=== PATIENT | male | born 1945 | race African-American/Black ===

== ENCOUNTER 2016-12-17 15:44 | Emergency (ER) | payer MEDICARE, MEDICAID ==
[~2016-12-17] VITALS: Ht 182.9 cm; Wt 90.0 kg
[~2016-12-17 15:44] MED LIST: ACET-2178 PO; ASPI-1159 PO; CITA10TA16 PO; CLON0.2T PO; DOCU-138 PO; HYDR-523 PO; LORA0.5T2 PO; METO25TA6 PO; MOM PO; MULT-348 PO; OLAN5TAB3 PO; PANT40TA4 PO; SERT50TA12 PO; TEMA15CA PO; TRAM50TA3 PO
[2016-12-17 16:25] LABS: BASOPHILS % 0.5 % (0.0-2.0); EOSINOPHILS % 7.3 % (0.0-5.0); HEMATOCRIT. 39.2 % (42.0-52.0); LYMPHOCYTES % 21.8 % (20.0-50.0); MEAN CORPUSCULAR HEMOGLOBIN 30.7 pg (28.0-32.0); MEAN CORPUSCULAR VOLUME 92.5 fL (80.0-94.0); MONOCYTES % 7.4 % (2.0-8.0); PLATELET 275 x1000/uL (130-400); RED BLOOD CELL COUNT 4.24 mill/uL (4.7-6.1)
[2016-12-17 16:31] LABS: INR 1.1; PROTHROMBIN TIME 11.3 sec
[2016-12-17 16:33] LABS: CARBON DIOXIDE 29 mEq/L (21-32); CHLORIDE 106 mEq/L (98-107)
[2016-12-17 19:47] VITALS: BP 164/72
[2017-02-03] MEDS ORDERED: LOV80 SUBCUT (08:34)
[2017-02-03] MEDS ORDERED: DILT30TA38 PO (08:34)
[2017-02-03] MEDS ORDERED: DIGO-26 PO (08:34)
[2017-02-03] MEDS ORDERED: WARFARIN PER PHARMACY XX (08:34)
[2017-02-03] MEDS ORDERED: WARF2TAB57 PO (08:35)
== END 2016-12-17 20:22 | disposition home or self-care (01) ==
LOC: ER 15:56 → CANBEDREQ 21:58
DX: L89.321 Pressure ulcer of left buttock, stage 1 (principal); L97.121 Non-pressure chronic ulcer of left thigh limited to breakdown of skin; F41.9 Anxiety disorder, unspecified; D64.9 Anemia, unspecified; I10 Essential (primary) hypertension; F03.90 Unspecified dementia, unspecified severity, without behavioral disturbance, psychotic disturbance, mood disturbance, and anxiety; R56.9 Unspecified convulsions; Z86.73 Personal history of transient ischemic attack (TIA), and cerebral infarction without residual deficits; Z79.82 Long term (current) use of aspirin; Z79.899 Other long term (current) drug therapy
CPT/HCPCS: 36415; 80048; 85025; 85610; 99284

== ENCOUNTER 2016-12-18 18:54 | Inpatient (IN) | payer MEDICARE, MEDICAID ==
[~2016-12-18] VITALS: Ht 182.9 cm; Wt 86.2 kg
[~2016-12-18 18:54] MED LIST changes: +MAGN400O4 PO; -MOM PO
[2016-12-18 19:31] LABS: BASOPHILS % 0.4 % (0.0-2.0); EOSINOPHILS % 7.2 % (0.0-5.0); HEMATOCRIT. 36.9 % (42.0-52.0); HEMOGLOBIN. 12.5 g/dL (14.0-18.0); LYMPHOCYTES % 22.4 % (20.0-50.0); MEAN CORPUSCULAR HEMOGLOBIN 31.3 pg (28.0-32.0); MEAN CORPUSCULAR VOLUME 92.7 fL (80.0-94.0); MEAN PLATELET VOLUME 8.1 fl (7.4-10.4); MONOCYTES % 8.9 % (2.0-8.0); NEUTROPHILS % 61.1 % (40.0-76.0); PLATELET 249 x1000/uL (130-400); RED BLOOD CELL COUNT 3.98 mill/uL (4.7-6.1); RED CELL DISTRIBUTION WIDTH 14.5 % (11.6-14.6)
[2016-12-18 19:37] LABS: INR 1.1; PROTHROMBIN TIME 11.2 sec
[2016-12-18 19:40] LABS: CARBON DIOXIDE 27 mEq/L (21-32); CHLORIDE 106 mEq/L (98-107)
[2016-12-18 23:46] LABS: CLARITY URINE CLEAR (CLEAR); COLOR URINE DARK YELLOW (YELLOW); GLUCOSE URINE NEGATIVE (NEGATIVE); KETONES URINE TRACE (NEGATIVE); LEUKOCYTE ESTERASE URINE TRACE (NEGATIVE); NITRITE URINE NEGATIVE (NEGATIVE); OCCULT BLOOD URINE NEGATIVE (NEGATIVE); PROTEIN URINE TRACE (NEGATIVE); SPECIFIC GRAVITY URINE 1.033 (1.005-1.030)
[2016-12-19] MEDS ORDERED: CEFTRIAXONE 1 G PREMIX 50 ML IV ONE
[2016-12-19] MEDS: IPRATROPIUM/ALBUTEROL 0.5-3(2.5)MG/3ML NEB INH SCH ×2 (01:35→21:09)
[2016-12-19 09:55] VITALS: BP 129/93
[2016-12-19 10:30] VITALS: BP 129/93
[2016-12-19] MEDS ORDERED: NA PHOS,M-B/NA PHOS,DI-BA ENEMA 118ML PR PRN (11:00)
[2016-12-19] MEDS ORDERED: DOCUSATE SODIUM 100MG CAPSULE PO PRN (11:00)
[2016-12-19] MEDS ORDERED: MAGNESIUM/ALUMINUM HYDROXIDE/SIMETHICONE 30ML UDC PO PRN (11:00)
[2016-12-19] MEDS ORDERED: DIPHENHYDRAMINE 50MG/ML VIAL IV PRN (11:00)
[2016-12-19] MEDS ORDERED: ACETAMINOPHEN 650MG SUPP PR PRN (11:00)
[2016-12-19] MEDS ORDERED: HYDROCODONE/ACETAMINOPHEN 5/325MG TABLET PO PRN (11:00)
[2016-12-19] MEDS ORDERED: ONDANSETRON HCL 4MG/2ML VIAL IV PRN (11:00)
[2016-12-19] MEDS ORDERED: ACETAMINOPHEN 650MG/20.3ML UDC GT PRN (11:00)
[2016-12-19] MEDS ORDERED: GUAIFENESIN 200MG/10ML SUGAR FREE UDC PO PRN (11:00)
[2016-12-19] MEDS ORDERED: IPRATROPIUM/ALBUTEROL 0.5-3(2.5)MG/3ML NEB INH PRN (11:00)
[2016-12-19 12:00] VITALS: BP 121/86
[2016-12-19 12:49] LABS: CARBON DIOXIDE 28 mEq/L (21-32); CHLORIDE 106 mEq/L (98-107)
[2016-12-19] MEDS: SODIUM CHLORIDE 0.9% INJ 3ML FLUSH IVF SCH ×2 (13:08→22:35)
[2016-12-19] MEDS: ENOXAPARIN 40MG/0.4ML SYR SUBCUT SCH (13:09)
[2016-12-19 16:00] VITALS: BP 133/94
[2016-12-19] MEDS: CLONIDINE 0.1MG TABLET PO PRN (17:42)
[2016-12-19 17:46] LABS: CREATINE KINASE 67 IU/L (39-308); TROPONIN I < 0.02 ng/mL (0.00-0.04)
[2016-12-19 18:15] LABS: BASOPHILS % 0.3 % (0.0-2.0); EOSINOPHILS % 7.1 % (0.0-5.0); HEMATOCRIT. 35.2 % (42.0-52.0); HEMOGLOBIN. 12.1 g/dL (14.0-18.0); LYMPHOCYTES % 23.1 % (20.0-50.0); MEAN CORPUSCULAR HEMOGLOBIN 31.6 pg (28.0-32.0); MEAN CORPUSCULAR VOLUME 92.4 fL (80.0-94.0); MEAN PLATELET VOLUME 8.3 fl (7.4-10.4); MONOCYTES % 9.4 % (2.0-8.0); NEUTROPHILS % 60.1 % (40.0-76.0); PLATELET 236 x1000/uL (130-400); RED BLOOD CELL COUNT 3.81 mill/uL (4.7-6.1)
[2016-12-19 18:24] LABS: CARBON DIOXIDE 26 mEq/L (21-32); CHLORIDE 107 mEq/L (98-107)
[2016-12-19 20:00] VITALS: BP 110/73
[2016-12-19 20:05] LABS: CLARITY URINE CLOUDY (CLEAR); COLOR URINE YELLOW (YELLOW); GLUCOSE URINE NEGATIVE (NEGATIVE); KETONES URINE NEGATIVE (NEGATIVE); LEUKOCYTE ESTERASE URINE TRACE (NEGATIVE); NITRITE URINE NEGATIVE (NEGATIVE); OCCULT BLOOD URINE 3+ (NEGATIVE); PH URINE 7.5 (4.5-8.0); PROTEIN URINE NEGATIVE (NEGATIVE); SPECIFIC GRAVITY URINE 1.024 (1.005-1.030)
[2016-12-19 20:18] LABS: *AMPHETAMINES SCREEN URINE NEGATIVE (NEGATIVE); *BARBITURATES SCREEN URINE NEGATIVE (NEGATIVE); *BENZODIAZEPINES SCREEN URINE NEGATIVE (NEGATIVE); *COCAINE SCREEN URINE NEGATIVE (NEGATIVE); CANNABINOID URINE SCREEN NEGATIVE (NEGATIVE); METHADONE URINE SCREEN NEGATIVE (NEGATIVE); OPIATES URINE SCREEN NEGATIVE (NEGATIVE); PHENCYCLIDINE URINE SCREEN NEGATIVE (NEGATIVE)
[2016-12-20] VITALS: BP 125/81
[2016-12-20 02:21] LABS: CREATINE KINASE 69 IU/L (39-308); TROPONIN I < 0.02 ng/mL (0.00-0.04)
[2016-12-20 04:00] VITALS: BP 144/84
[2016-12-20] MEDS: SODIUM CHLORIDE 0.9% INJ 3ML FLUSH IVF SCH ×3 (06:17→22:24)
[2016-12-20 08:00] VITALS: BP 128/106
[2016-12-20] MEDS: ENOXAPARIN 40MG/0.4ML SYR SUBCUT SCH (08:39)
[2016-12-20 08:44] LABS: BASOPHILS % 0.5 % (0.0-2.0); HEMATOCRIT. 35.5 % (42.0-52.0); HEMOGLOBIN. 11.9 g/dL (14.0-18.0); LYMPHOCYTES % 16.7 % (20.0-50.0); MEAN CORPUSCULAR HEMOGLOBIN 30.9 pg (28.0-32.0); MEAN CORPUSCULAR VOLUME 92.6 fL (80.0-94.0); MONOCYTES % 8.3 % (2.0-8.0); NEUTROPHILS % 67.5 % (40.0-76.0); PLATELET 251 x1000/uL (130-400); RED BLOOD CELL COUNT 3.84 mill/uL (4.7-6.1); RED CELL DISTRIBUTION WIDTH 14.6 % (11.6-14.6)
[2016-12-20 09:02] LABS: CARBON DIOXIDE 26 mEq/L (21-32); CHLORIDE 107 mEq/L (98-107)
[2016-12-20] MEDS: IPRATROPIUM/ALBUTEROL 0.5-3(2.5)MG/3ML NEB INH SCH ×3 (09:27→21:04)
[2016-12-20] MEDS: LEVETIRACETAM 500MG TABLET PO SCH ×2 (10:13→22:21)
[2016-12-20] MEDS: CLONIDINE 0.1MG TABLET PO PRN (10:13)
[2016-12-20 12:00] VITALS: BP 114/87
[2016-12-20 16:00] VITALS: BP 110/73
[2016-12-20] MEDS ORDERED: SODIUM CHLORIDE 0.45% 1,000 ML IV SCH (17:45)
[2016-12-20] MEDS ORDERED: LORAZEPAM 0.5MG TABLET PO PRN (18:00)
[2016-12-20] MEDS: CITALOPRAM HYDROBROMIDE 10MG TABLET PO SCH (18:00)
[2016-12-20] MEDS ORDERED: ACETAMINOPHEN 325MG TABLET PO PRN (18:00)
[2016-12-20] MEDS: DOCUSATE SODIUM 100MG CAPSULE PO SCH (18:00)
[2016-12-20] MEDS ORDERED: HYDROCODONE/ACETAMINOPHEN 5/325MG TABLET PO PRN (18:00)
[2016-12-20] MEDS ORDERED: ASPIRIN 81MG EC TABLET PO SCH (18:00)
[2016-12-20] MEDS ORDERED: CLONIDINE 0.2MG TABLET PO PRN (18:00)
[2016-12-20] MEDS ORDERED: TRAMADOL 50MG TABLET PO PRN (18:00)
[2016-12-20 20:00] VITALS: BP 113/76
[2016-12-20] MEDS: METOPROLOL TARTRATE 25MG TABLET PO SCH (22:20)
[2016-12-21] VITALS: BP 122/76
[2016-12-21] MEDS: IPRATROPIUM/ALBUTEROL 0.5-3(2.5)MG/3ML NEB INH SCH ×3 (02:19→15:13)
[2016-12-21 04:00] VITALS: BP 127/82
[2016-12-21] MEDS: SODIUM CHLORIDE 0.9% INJ 3ML FLUSH IVF SCH ×2 (07:07→13:58)
[2016-12-21 08:00] VITALS: BP 126/86
[2016-12-21] MEDS: DOCUSATE SODIUM 100MG CAPSULE PO SCH ×2 (09:00→10:45)
[2016-12-21] MEDS: OLANZAPINE 5MG TABLET PO SCH ×2 (09:00→10:45)
[2016-12-21] MEDS: SERTRALINE HCL 50MG TABLET PO SCH ×2 (09:00→10:45)
[2016-12-21] MEDS: CITALOPRAM HYDROBROMIDE 10MG TABLET PO SCH ×2 (10:44→10:58)
[2016-12-21] MEDS: METOPROLOL TARTRATE 25MG TABLET PO SCH (10:45)
[2016-12-21] MEDS: LEVETIRACETAM 500MG TABLET PO SCH (10:45)
[2016-12-21] MEDS: ENOXAPARIN 40MG/0.4ML SYR SUBCUT SCH (10:45)
[2016-12-21 12:00] VITALS: BP 132/79
[2016-12-21 13:07] LABS: BASOPHILS % 0.4 % (0.0-2.0); HEMATOCRIT. 35.9 % (42.0-52.0); HEMOGLOBIN. 11.9 g/dL (14.0-18.0); MEAN CORPUSCULAR HEMOGLOBIN 30.9 pg (28.0-32.0); MEAN CORPUSCULAR VOLUME 93.2 fL (80.0-94.0); MEAN PLATELET VOLUME 8.3 fl (7.4-10.4); NEUTROPHILS % 61.6 % (40.0-76.0); PLATELET 259 x1000/uL (130-400); RED BLOOD CELL COUNT 3.85 mill/uL (4.7-6.1); RED CELL DISTRIBUTION WIDTH 15.1 % (11.6-14.6)
[2016-12-21 13:47] LABS: CARBON DIOXIDE 27 mEq/L (21-32); CHLORIDE 104 mEq/L (98-107)
[2016-12-21 16:56] VITALS: BP 132/79
[2016-12-21] MEDS ORDERED: TEMAZEPAM 15MG CAPSULE PO SCH (21:00)
== END 2016-12-21 17:25 | DRG 70 ==
LOC: ER 18:56 → 6EST 12-19 00:41 → ENRESERV 12-19 08:11
PROVIDERS: ADMIT Family Medicine; ATTEND Family Medicine
DX: G93.40 Encephalopathy, unspecified (principal); E43 Unspecified severe protein-calorie malnutrition; N30.00 Acute cystitis without hematuria; L89.159 Pressure ulcer of sacral region, unspecified stage; E11.9 Type 2 diabetes mellitus without complications; F03.90 Unspecified dementia, unspecified severity, without behavioral disturbance, psychotic disturbance, mood disturbance, and anxiety; D64.9 Anemia, unspecified; G40.909 Epilepsy, unspecified, not intractable, without status epilepticus; I10 Essential (primary) hypertension; F41.9 Anxiety disorder, unspecified; Z74.01 Bed confinement status; Z68.25 Body mass index [BMI] 25.0-25.9, adult; Z91.010 Allergy to peanuts; Z86.73 Personal history of transient ischemic attack (TIA), and cerebral infarction without residual deficits; Z91.018 Allergy to other foods; Z79.899 Other long term (current) drug therapy; Z79.4 Long term (current) use of insulin
CPT/HCPCS: 36415; 70450; 71010; 80048; 80053; 80305; 81001; 82550; 83605; 83690; 84484; 85025; 85610; 87040; 87070; 87077; 87086; 87186; 87205; 93005; 94640; 94664; 96365; 99285; A6261; J0696; J1650; J7620; A4315

== ENCOUNTER 2018-04-24 05:20 | Inpatient (IN) | payer MEDICARE, MEDICAID ==
[~2018-04-24] VITALS: Ht 182.9 cm; Wt 76.9 kg
[~2018-04-24 05:20] MED LIST changes: -ASPI-1159 PO; +DIGO-26 PO; +DILT30TA38 PO; -LORA0.5T2 PO; +LOV80 SUBCUT; -MAGN400O4 PO; -METO25TA6 PO; +MOM PO; -OLAN5TAB3 PO; -TEMA15CA PO; -TRAM50TA3 PO; +WARF2TAB57 PO; +WARFARIN PER PHARMACY XX
[2018-04-24] MEDS ORDERED: HYDROCODONE/ACETAMINOPHEN 5/325MG TABLET PO STA (06:27)
[2018-04-24 07:27] LABS: HEMATOCRIT. 43.6 % (42.0-52.0); HEMOGLOBIN. 14.7 g/dL (14.0-18.0); MEAN CORPUSCULAR HEMOGLOBIN 32.4 pg (28.0-32.0); MEAN CORPUSCULAR VOLUME 96.2 fL (80.0-94.0); MEAN PLATELET VOLUME 8.3 fl (7.4-10.4); PLATELET 501 x1000/uL (130-400); RED BLOOD CELL COUNT 4.53 mill/uL (4.7-6.1); RED CELL DISTRIBUTION WIDTH 15.3 % (11.6-14.6)
[2018-04-24 07:32] LABS: CHLORIDE 96 mEq/L (98-107)
[2018-04-24 07:33] LABS: INR 1.7; PROTHROMBIN TIME 17.3 sec (9.1-11.1)
[2018-04-24 08:26] LABS: PLATELET ESTIMATE INCREASED
[2018-04-24 10:03] LABS: CLARITY URINE TURBID (CLEAR); COLOR URINE YELLOW (YELLOW); KETONES URINE 1+ (NEGATIVE); LEUKOCYTE ESTERASE URINE 3+ (NEGATIVE); NITRITE URINE NEGATIVE (NEGATIVE); OCCULT BLOOD URINE 2+ (NEGATIVE); PROTEIN URINE 2+ (NEGATIVE); SPECIFIC GRAVITY URINE 1.021 (1.005-1.030)
[2018-04-24] MEDS ORDERED: PANTOPRAZOLE 80 MG in SODIUM CHLORIDE 0.9% 100 ML IV SCH ×2 (10:30→10:45)
[2018-04-24] MEDS ORDERED: CEFTRIAXONE 1 G PREMIX 50 ML IV ONE (10:30)
[2018-04-24] MEDS ORDERED: FENTANYL CITRATE/PF 50MCG/ML 2ML VIAL IV ONE (12:48)
[2018-04-24] MEDS ORDERED: MIDAZOLAM HCL 5 MG/5 ML VIAL IV ONE (12:50)
[2018-04-24] MEDS ORDERED: SIMETHICONE 40 MG/0.6 ML 30ML ONE (12:54)
[2018-04-24] MEDS ORDERED: MIDAZOLAM HCL 5 MG/5 ML VIAL ONE (12:55)
[2018-04-24] MEDS ORDERED: FENTANYL CITRATE/PF 50MCG/ML 2ML VIAL ONE (12:55)
[2018-04-24 15:20] VITALS: BP 155/80
[2018-04-24] MEDS ORDERED: KEPP500 MT (15:57)
[2018-04-24] MEDS ORDERED: DOCUSATE SODIUM 100MG CAPSULE PO PRN (16:15)
[2018-04-24] MEDS ORDERED: IPRATROPIUM/ALBUTEROL 0.5-3(2.5)MG/3ML NEB INH PRN (16:15)
[2018-04-24] MEDS ORDERED: NA PHOS,M-B/NA PHOS,DI-BA ENEMA 118ML PR PRN ×2 (16:15→17:00)
[2018-04-24] MEDS ORDERED: GUAIFENESIN 200MG/10ML SUGAR FREE UDC PO PRN (16:15)
[2018-04-24] MEDS ORDERED: DIPHENHYDRAMINE 50MG/ML VIAL IV PRN (16:15)
[2018-04-24] MEDS ORDERED: ACETAMINOPHEN 650MG SUPP PR PRN (16:15)
[2018-04-24] MEDS ORDERED: ACETAMINOPHEN 650MG/20.3ML UDC GT PRN (16:15)
[2018-04-24] MEDS ORDERED: CLONIDINE 0.1MG TABLET PO PRN (16:15)
[2018-04-24] MEDS ORDERED: MAGNESIUM/ALUMINUM HYDROXIDE/SIMETHICONE 30ML UDC PO PRN (16:15)
[2018-04-24] MEDS ORDERED: ONDANSETRON HCL 4MG/2ML INJ IV PRN (16:15)
[2018-04-24] MEDS ORDERED: POTASSIUM CHLORIDE 20MEQ TABLET SR PO NR (16:30)
[2018-04-24] MEDS: HYDROCODONE/ACETAMINOPHEN 10/325MG TABLET PO PRN ×2 (16:43→21:23)
[2018-04-24] MEDS: DEXT 5%/0.45% NACL 1000ML 1,000 ML IV SCH (16:43)
[2018-04-24] MEDS ORDERED: SORBITOL 70% SOLN 30ML PO NR (17:00)
[2018-04-24] MEDS ORDERED: BLOOD SUGAR DIAGNOSTIC STRIP TEST SCH (17:10)
[2018-04-24] MEDS ORDERED: DEXTROSE 50% WATER 50ML SYRINGE IV PRN (17:30)
[2018-04-24] MEDS ORDERED: INSULIN LISPRO 100 UNITS/ML SUBCUT SCH (17:40)
[2018-04-24] MEDS: SUCRALFATE 1 G/10 ML UDC PO SCH (17:49)
[2018-04-24] MEDS: LEVETIRACETAM 500MG TABLET PO SCH (17:49)
[2018-04-24] MEDS: DIGOXIN 125MCG TABLET PO SCH (17:49)
[2018-04-24] MEDS ORDERED: DILTIAZEM HCL 30MG TABLET PO SCH (18:00)
[2018-04-24] MEDS ORDERED: MAGNESIUM CITRATE 300ML SOLUTION PO NR (19:00)
[2018-04-24] MEDS: CEFTRIAXONE 1 G PREMIX 50 ML IV SCH (19:39)
[2018-04-24 20:00] VITALS: BP 132/84
[2018-04-24] MEDS: SODIUM CHLORIDE 0.9% INJ 3ML FLUSH IVF SCH (22:00)
[2018-04-25] VITALS: BP 128/66
[2018-04-25] MEDS: SUCRALFATE 1 G/10 ML UDC PO SCH ×4 (00:12→18:09)
[2018-04-25] MEDS: ACETAMINOPHEN 325MG TABLET PO PRN ×3 (00:13→22:41)
[2018-04-25] MEDS: DILTIAZEM HCL 30MG TABLET PO SCH ×4 (01:28→18:08)
[2018-04-25] MEDS: DEXT 5%/0.45% NACL 1000ML 1,000 ML IV SCH ×3 (02:14→22:45)
[2018-04-25 04:00] VITALS: BP 143/88
[2018-04-25] MEDS: SODIUM CHLORIDE 0.9% INJ 3ML FLUSH IVF SCH ×3 (06:40→22:00)
[2018-04-25 08:00] VITALS: BP 132/83
[2018-04-25] MEDS: LEVETIRACETAM 500MG TABLET PO SCH (08:32)
[2018-04-25] MEDS: HYDROCODONE/ACETAMINOPHEN 10/325MG TABLET PO PRN ×3 (08:33→18:09)
[2018-04-25 12:00] VITALS: BP 134/96
[2018-04-25 16:00] VITALS: BP 127/84
[2018-04-25 16:52] LABS: HEMATOCRIT 35.7 % (42.0-52.0); HEMOGLOBIN 11.8 g/dL (14.0-18.0)
[2018-04-25] MEDS: DIGOXIN 125MCG TABLET PO SCH (18:08)
[2018-04-25] MEDS: CEFTRIAXONE 1 G PREMIX 50 ML IV SCH (18:09)
[2018-04-25 20:00] VITALS: BP 135/63
[2018-04-25 23:06] LABS: BASOPHILS % 1.5 % (0.0-2.0); EOSINOPHILS % 0.7 % (0.0-5.0); HEMATOCRIT. 35.9 % (42.0-52.0); HEMOGLOBIN. 11.8 g/dL (14.0-18.0); LYMPHOCYTES % 24.3 % (20.0-50.0); MEAN CORPUSCULAR HEMOGLOBIN 32.2 pg (28.0-32.0); MEAN CORPUSCULAR VOLUME 98.1 fL (80.0-94.0); MEAN PLATELET VOLUME 8.4 fl (7.4-10.4); MONOCYTES % 9.8 % (2.0-8.0); NEUTROPHILS % 63.7 % (40.0-76.0); PLATELET 356 x1000/uL (130-400); RED BLOOD CELL COUNT 3.66 mill/uL (4.7-6.1); RED CELL DISTRIBUTION WIDTH 15.3 % (11.6-14.6)
[2018-04-26] VITALS: BP 129/87
[2018-04-26] MEDS: DILTIAZEM HCL 30MG TABLET PO SCH ×5 (01:04→23:39)
[2018-04-26] MEDS: SUCRALFATE 1 G/10 ML UDC PO SCH ×5 (01:04→23:39)
[2018-04-26 04:00] VITALS: BP 154/93
[2018-04-26] MEDS: HYDROCODONE/ACETAMINOPHEN 5/325MG TABLET PO PRN ×3 (04:35→23:43)
[2018-04-26] MEDS: SODIUM CHLORIDE 0.9% INJ 3ML FLUSH IVF SCH ×3 (06:00→20:31)
[2018-04-26 08:30] VITALS: BP 154/96
[2018-04-26] MEDS: DEXT 5%/0.45% NACL 1000ML 1,000 ML IV SCH ×2 (09:00→20:27)
[2018-04-26] MEDS: LEVETIRACETAM 500MG TABLET PO SCH (09:11)
[2018-04-26] MEDS: HYDROCODONE/ACETAMINOPHEN 10/325MG TABLET PO PRN ×2 (09:13→13:29)
[2018-04-26 12:00] VITALS: BP 133/87
[2018-04-26] MEDS ORDERED: LEVO500T2 MT (14:39)
[2018-04-26] MEDS: LEVOFLOXACIN 500MG TABLET PO SCH (15:30)
[2018-04-26 16:00] VITALS: BP 150/98
[2018-04-26] MEDS: ACETAMINOPHEN 325MG TABLET PO PRN (16:26)
[2018-04-26] MEDS: DIGOXIN 125MCG TABLET PO SCH (18:37)
[2018-04-26] MEDS: CEFTRIAXONE 1 G PREMIX 50 ML IV SCH (19:00)
[2018-04-26 20:00] VITALS: BP 146/87
[2018-04-27] VITALS: BP_SYST 156; BP_SYST 159; BP_DIAS 94; BP_DIAS 96
[2018-04-27 04:00] VITALS: BP 138/91
[2018-04-27] MEDS: ACETAMINOPHEN 325MG TABLET PO PRN ×2 (04:10→09:35)
[2018-04-27] MEDS: SODIUM CHLORIDE 0.9% INJ 3ML FLUSH IVF SCH ×2 (05:44→13:36)
[2018-04-27] MEDS: SUCRALFATE 1 G/10 ML UDC PO SCH ×2 (05:44→11:48)
[2018-04-27] MEDS: DILTIAZEM HCL 30MG TABLET PO SCH ×2 (05:45→11:56)
[2018-04-27] MEDS: DEXT 5%/0.45% NACL 1000ML 1,000 ML IV SCH (06:27)
[2018-04-27 08:00] VITALS: BP 146/84
[2018-04-27] MEDS: LEVETIRACETAM 500MG TABLET PO SCH (09:09)
[2018-04-27] MEDS: LEVOFLOXACIN 500MG TABLET PO SCH (11:00)
[2018-04-27 11:54] VITALS: BP 158/94
[2018-04-27] MEDS: HYDROCODONE/ACETAMINOPHEN 10/325MG TABLET PO PRN (11:56)
[2018-04-27 12:41] VITALS: BP 158/94
== END 2018-04-27 15:30 | DRG 871 ==
LOC: ER 05:20 → 8WST 10:24 → EDBEDREQTM 10:26 → ENRESERV 13:24
PROVIDERS: ADMIT Family Medicine; ATTEND Family Medicine
PROC: 0W3P8ZZ Control Bleeding in Gastrointestinal Tract, Via Natural or Artificial Opening Endoscopic (ICD-10-PCS; principal; 2018-04-24 13:00)
DX: A41.9 Sepsis, unspecified organism (principal); K22.11 Ulcer of esophagus with bleeding; N39.0 Urinary tract infection, site not specified; D68.9 Coagulation defect, unspecified; I69.359 Hemiplegia and hemiparesis following cerebral infarction affecting unspecified side; K92.0 Hematemesis; K56.41 Fecal impaction; E87.6 Hypokalemia; B96.20 Unspecified Escherichia coli [E. coli] as the cause of diseases classified elsewhere; E11.9 Type 2 diabetes mellitus without complications; E78.5 Hyperlipidemia, unspecified; F03.90 Unspecified dementia, unspecified severity, without behavioral disturbance, psychotic disturbance, mood disturbance, and anxiety; G40.909 Epilepsy, unspecified, not intractable, without status epilepticus; I11.0 Hypertensive heart disease with heart failure; I25.10 Atherosclerotic heart disease of native coronary artery without angina pectoris; I50.9 Heart failure, unspecified; K21.9 Gastro-esophageal reflux disease without esophagitis; K29.70 Gastritis, unspecified, without bleeding; K44.9 Diaphragmatic hernia without obstruction or gangrene; F32.9 Major depressive disorder, single episode, unspecified; N28.1 Cyst of kidney, acquired; Z79.01 Long term (current) use of anticoagulants; Z86.718 Personal history of other venous thrombosis and embolism; Z87.19 Personal history of other diseases of the digestive system
CPT/HCPCS: 36415; 71045; 74176; 80061; 82962; 85014; 85018; 87077; 87186; 93970; 96365; 96375; 99285; C1893; C9113; J0696; J2250; J3010; J3490; J7050

== ENCOUNTER 2020-01-23 16:43 | Emergency (ER) | payer MEDICARE, MEDICAID ==
[~2020-01-23] VITALS: Ht 182.9 cm; Wt 68.0 kg
[~2020-01-23 16:43] MED LIST changes: -ACET-2178 PO; +KEPP500 MT; +LEVO500T2 MT; -LOV80 SUBCUT; +TOPUD PO; -WARF2TAB57 PO; -WARFARIN PER PHARMACY XX
[2020-01-23 19:06] LABS: HEMATOCRIT 44.9 % (42.0-52.0); HEMOGLOBIN 15.1 g/dL (14.0-18.0); MEAN CORPUSCULAR HEMOGLOBIN 31.8 pg (28.0-32.0); MEAN CORPUSCULAR VOLUME 94.8 fL (80.0-94.0); PLATELET 303 x1000/uL (130-400); RED BLOOD CELL COUNT 4.74 mill/uL (4.7-6.1)
[2020-01-23] MEDS ORDERED: MORPHINE SULFATE 4 MG/ML CPJ (NOT FOR IM USE) IV STA (19:06)
[2020-01-23] MEDS ORDERED: ONDANSETRON HCL 4MG/2ML INJ IV STA (19:06)
[2020-01-23 19:11] LABS: CHLORIDE 102 mEq/L (98-107)
[2020-01-23 20:55] VITALS: BP 158/60
== END 2020-01-23 21:05 | disposition home or self-care (01) ==
LOC: ER 16:43
DX: M62.462 Contracture of muscle, left lower leg (principal); M79.605 Pain in left leg; M79.602 Pain in left arm; I11.0 Hypertensive heart disease with heart failure; I50.9 Heart failure, unspecified; F03.90 Unspecified dementia, unspecified severity, without behavioral disturbance, psychotic disturbance, mood disturbance, and anxiety; I25.10 Atherosclerotic heart disease of native coronary artery without angina pectoris; K21.9 Gastro-esophageal reflux disease without esophagitis; G83.9 Paralytic syndrome, unspecified; Z79.899 Other long term (current) drug therapy; Z98.890 Other specified postprocedural states; Z86.73 Personal history of transient ischemic attack (TIA), and cerebral infarction without residual deficits
CPT/HCPCS: 36415; 73030; 73060; 73070; 73090; 73502; 73552; 73560; 73590; 80048; 85027; 93005; 96374; 96375; 99285; J2270; J2405

== ENCOUNTER 2022-04-02 15:38 | Inpatient (IN) | payer MEDICARE, MEDICAID ==
[~2022-04-02] VITALS: Ht 182.9 cm; Wt 95.0 kg
[~2022-04-02 15:38] MED LIST changes: -PANT40TA4 PO; +PANT40TA51 PO; +SERT-422 PO; -SERT50TA12 PO
[2022-04-02 20:00] VITALS: BP_SYST 140; BP_SYST 147; BP_DIAS 81; BP_DIAS 93
[2022-04-02] MEDS: DEXT 5%/0.9% NACL 1,000 ML IV SCH (21:39)
[2022-04-02] MEDS: ACETAMINOPHEN 325MG TABLET PO PRN (21:39)
[2022-04-03] VITALS: BP 140/81
[2022-04-03] MEDS ORDERED: ASPI-1497 PO (00:58)
[2022-04-03] MEDS ORDERED: BACL-141 PO (01:00)
[2022-04-03] MEDS ORDERED: FAMO40TA70 PO (01:00)
[2022-04-03] MEDS ORDERED: GABA-529 PO (01:00)
[2022-04-03 04:00] VITALS: BP 136/76
[2022-04-03 06:45] LABS: CHLORIDE 101 mEq/L (98-107)
[2022-04-03 06:54] LABS: BASOPHILS % 0.5 % (0.0-2.0); EOSINOPHILS % 4.8 % (0.0-5.0); HEMATOCRIT. 38.9 % (42.0-52.0); HEMOGLOBIN. 13.1 g/dL (14.0-18.0); LYMPHOCYTES % 29.1 % (20.0-50.0); MEAN CORPUSCULAR HEMOGLOBIN 30.8 pg (28.0-32.0); MEAN CORPUSCULAR VOLUME 91.8 fL (80.0-94.0); MEAN PLATELET VOLUME 8.4 fl (7.4-10.4); MONOCYTES % 10.8 % (2.0-8.0); NEUTROPHILS % 54.8 % (40.0-76.0); PLATELET 272 x1000/uL (130-400); RED BLOOD CELL COUNT 4.24 mill/uL (4.7-6.1); RED CELL DISTRIBUTION WIDTH 15.2 % (11.6-14.6)
[2022-04-03 08:00] VITALS: BP 163/90
[2022-04-03] MEDS: ACETAMINOPHEN 325MG TABLET PO PRN ×3 (08:40→20:36)
[2022-04-03] MEDS ORDERED: ENOXAPARIN 40MG/0.4ML SYR SUBCUT SCH (09:00)
[2022-04-03] MEDS ORDERED: ENOXAPARIN 30MG/0.3ML SYR SUBCUT SCH (09:00)
[2022-04-03 12:00] VITALS: BP_SYST 128; BP_SYST 158; BP_DIAS 75; BP_DIAS 83
[2022-04-03] MEDS: DEXT 5%/0.9% NACL 1,000 ML IV SCH (14:42)
[2022-04-03 16:00] VITALS: BP 158/95
[2022-04-03 20:00] VITALS: BP 160/96
[2022-04-04] VITALS: BP 148/78
[2022-04-04] MEDS: LACTULOSE 20G/30ML UDC PO SCH
[2022-04-04] MEDS: ONDANSETRON HCL 4MG/2ML INJ IV PRN ×3 (02:12→20:50)
[2022-04-04 04:00] VITALS: BP 170/94
[2022-04-04] MEDS ORDERED: LABETALOL HCL VIAL 20 MG/4 ML VIAL IV SCH (04:30)
[2022-04-04] MEDS ORDERED: METOCLOPRAMIDE HCL 10MG/2ML VIAL IV SCH (04:30)
[2022-04-04] MEDS ORDERED: LABETALOL 5MG/ML SYR 20 MG/4 ML SYRINGE IV PRN (05:15)
[2022-04-04] MEDS ORDERED: PANTOPRAZOLE 80 MG in SODIUM CHLORIDE 0.9% 100 ML IV SCH (06:00)
[2022-04-04] MEDS: METOCLOPRAMIDE HCL 10MG/2ML VIAL IV SCH ×4 (06:11→23:59)
[2022-04-04] MEDS: DEXT 5%/0.9% NACL 1,000 ML IV SCH (06:35)
[2022-04-04 07:39] VITALS: BP 145/90
[2022-04-04] MEDS: ACETAMINOPHEN 325MG TABLET PO PRN ×2 (11:00→17:10)
[2022-04-04 12:00] VITALS: BP 114/68
[2022-04-04 16:00] VITALS: BP 143/96
[2022-04-04 16:41] LABS: BASOPHILS % 0.1 % (0.0-2.0); EOSINOPHILS % 0.1 % (0.0-5.0); HEMATOCRIT. 41.4 % (42.0-52.0); HEMOGLOBIN. 13.9 g/dL (14.0-18.0); LYMPHOCYTES % 17.2 % (20.0-50.0); MEAN CORPUSCULAR VOLUME 92.2 fL (80.0-94.0); MEAN PLATELET VOLUME 8.5 fl (7.4-10.4); MONOCYTES % 5.9 % (2.0-8.0); NEUTROPHILS % 76.7 % (40.0-76.0); PLATELET 295 x1000/uL (130-400); RED BLOOD CELL COUNT 4.49 mill/uL (4.7-6.1); RED CELL DISTRIBUTION WIDTH 14.7 % (11.6-14.6)
[2022-04-04 16:52] LABS: PROTHROMBIN TIME 11.1 sec (9.6-11.0)
[2022-04-04 17:00] LABS: CHLORIDE 104 mEq/L (98-107)
[2022-04-04 20:15] VITALS: BP 176/99
[2022-04-04] MEDS: LEVETIRACETAM 500MG TABLET PO SCH (21:50)
[2022-04-04] MEDS ORDERED: DEXTROSE 50% WATER 50ML SYRINGE IV PRN (22:00)
[2022-04-04] MEDS: BLOOD SUGAR DIAGNOSTIC STRIP TEST SCH (22:30)
[2022-04-04] MEDS ORDERED: ACETAMINOPHEN 650MG/20.3ML UDC PO PRN (22:30)
[2022-04-04] MEDS: INSULIN LISPRO 100 UNITS/ML SUBCUT SCH (22:30)
[2022-04-05] VITALS (7 sets, daily range): BP systolic 140–167; BP diastolic 84–97
[2022-04-05] MEDS: DILTIAZEM HCL 30MG TABLET PO SCH ×4 (00:06→17:05)
[2022-04-05] MEDS: DEXT 5%/0.9% NACL 1,000 ML IV SCH ×2 (00:41→13:44)
[2022-04-05] MEDS: NA PHOS,M-B/NA PHOS,DI-BA ENEMA 118ML PR NR ×2 (02:21→02:23)
[2022-04-05] MEDS: METOCLOPRAMIDE HCL 10MG/2ML VIAL IV SCH (06:00)
[2022-04-05] MEDS: LACTULOSE 20G/30ML UDC PO SCH ×3 (06:00→21:16)
[2022-04-05] MEDS: INSULIN LISPRO 100 UNITS/ML SUBCUT SCH ×4 (07:40→20:01)
[2022-04-05] MEDS: BLOOD SUGAR DIAGNOSTIC STRIP TEST SCH ×4 (07:41→20:01)
[2022-04-05] MEDS: LEVETIRACETAM 500MG TABLET PO SCH (08:47)
[2022-04-05] MEDS: SERTRALINE HCL 50MG TABLET PO SCH (08:47)
[2022-04-05] MEDS: CLONIDINE 0.2MG TABLET PO PRN (11:09)
[2022-04-05] MEDS: DIGOXIN 125MCG TABLET PO SCH (17:05)
[2022-04-05] MEDS: ACETAMINOPHEN 325MG TABLET PO PRN ×2 (19:26)
[2022-04-06] VITALS (7 sets, daily range): BP systolic 145–165; BP diastolic 80–103
[2022-04-06] MEDS: DILTIAZEM HCL 30MG TABLET PO SCH ×4 (01:01→17:45)
[2022-04-06] MEDS: ONDANSETRON HCL 4MG/2ML INJ IV PRN (02:56)
[2022-04-06] MEDS: BLOOD SUGAR DIAGNOSTIC STRIP TEST SCH ×4 (05:33→20:09)
[2022-04-06] MEDS: LACTULOSE 20G/30ML UDC PO SCH ×3 (05:56→19:42)
[2022-04-06] MEDS: INSULIN LISPRO 100 UNITS/ML SUBCUT SCH ×4 (07:05→20:10)
[2022-04-06] MEDS: DEXT 5%/0.9% NACL 1,000 ML IV SCH (11:30)
[2022-04-06] MEDS: LEVETIRACETAM 500MG TABLET PO SCH (11:33)
[2022-04-06] MEDS: SERTRALINE HCL 50MG TABLET PO SCH (11:34)
[2022-04-06] MEDS: DIGOXIN 125MCG TABLET PO SCH (17:45)
[2022-04-07] VITALS: BP 150/90
[2022-04-07] MEDS: DEXT 5%/0.9% NACL 1,000 ML IV SCH
[2022-04-07] MEDS: ACETAMINOPHEN 325MG TABLET PO PRN (01:24)
[2022-04-07 04:00] VITALS: BP 179/105
[2022-04-07] MEDS: LACTULOSE 20G/30ML UDC PO SCH (06:00)
[2022-04-07] MEDS: DILTIAZEM HCL 30MG TABLET PO SCH ×2 (06:33)
[2022-04-07] MEDS: BLOOD SUGAR DIAGNOSTIC STRIP TEST SCH (07:10)
[2022-04-07] MEDS: INSULIN LISPRO 100 UNITS/ML SUBCUT SCH (07:40)
[2022-04-07 08:00] VITALS: BP 166/99
[2022-04-07] MEDS: CLONIDINE 0.2MG TABLET PO PRN (09:24)
[2022-04-07] MEDS: LEVETIRACETAM 500MG TABLET PO SCH (09:25)
[2022-04-07] MEDS: SERTRALINE HCL 50MG TABLET PO SCH (09:25)
== END 2022-04-07 11:10 | DRG 640 ==
LOC: 8WST 18:50
PROVIDERS: ADMIT Internal Medicine Critical Care Medicine; ATTEND Family Medicine
DX: R62.7 Adult failure to thrive (principal); E43 Unspecified severe protein-calorie malnutrition; I26.99 Other pulmonary embolism without acute cor pulmonale; K21.00 Gastro-esophageal reflux disease with esophagitis, without bleeding; G40.909 Epilepsy, unspecified, not intractable, without status epilepticus; E11.9 Type 2 diabetes mellitus without complications; I25.10 Atherosclerotic heart disease of native coronary artery without angina pectoris; I11.0 Hypertensive heart disease with heart failure; I50.9 Heart failure, unspecified; F32.A Depression, unspecified; F03.A0 Unspecified dementia, mild, without behavioral disturbance, psychotic disturbance, mood disturbance, and anxiety; E78.5 Hyperlipidemia, unspecified; J45.909 Unspecified asthma, uncomplicated; Z86.73 Personal history of transient ischemic attack (TIA), and cerebral infarction without residual deficits; Z68.28 Body mass index [BMI] 28.0-28.9, adult; Z86.718 Personal history of other venous thrombosis and embolism; E86.0 Dehydration; K56.41 Fecal impaction
CPT/HCPCS: 36415; 71045; 74018; 80053; 82652; 82962; 84443; 85025; 97162; A6261; C9113; J1650; J1815; J2405; J2765; J3490; J7042; J7050